=== PATIENT | male | born 1965 | race African-American/Black ===

== ENCOUNTER 2019-07-31 02:16 | Observation (INO) | payer MEDICAID ==
[2019-07-31 02:53] LABS: #Basophils 0.1 thou/uL (0.0-0.2); #Eosinphils 0.7 thou/uL (0.0-0.7); #Monocytes 0.8 thou/uL (0.11-0.59); #Neutrophils 4.3 thou/uL (1.40-6.50); %Basophils 1.1 % (0.0-1.0); %Eosinophils 8.7 % (0.0-10.0); %Lymphocytes 25.6 % (21.0-51.0); %Monocytes 9.9 % (0.0-10.0); %Neutrophils 54.8 % (42.0-75.0); Mean Corpuscular HGB CONC 33.5 g/dL (32.0-36.0); Mean Corpuscular Hemoglobin 33.7 pg (27.0-31.0); Mean Platelet Volume 8.8 fL (7.4-10.4); Platelet Count 202 thou/uL (130-400); RBC Distribution Width 18.7 % (11.5-14.5); Red Blood Cell (RBC) Count 2.98 mill/uL (4.70-6.10); White Blood Cell (WBC) Count 7.8 thou/uL (4.8-10.8)
[2019-07-31 03:07] LABS: ALT (SGPT) Less than 7 U/L (8-55); AST (SGOT) 23 U/L (5-34); Albumin 3.7 g/dL (3.5-5.0); Alkaline Phosphatase 62 U/L (40-110); Anion Gap 18 mmol/L (10-20); BUN (Urea Nitrogen) 32 mg/dL (8.4-25.7); Bilirubin, Total 0.6 mg/dL (0.2-1.2); Calc. Creatinine Clearance 0 mL/min (70-130); Calcium 10.1 mg/dL (7.8-10.44); Carbon Dioxide 23 mmol/L (22-29); Chloride 92 mmol/L (98-107); Estimated GFR-MDRD 11; Globulin 4.6 g/dL (2.4-3.5); Glucose 89 mg/dL (70-105); Potassium 4.6 mmol/L (3.5-5.1); Protein, Total 8.3 g/dL (6.0-8.3); Sodium 128 mmol/L (136-145)
--- NOTE | 2019-07-31 05:16 | HP ---
PRIMARY CARE PHYSICIAN: Dr. Zavala in [place]. CHIEF COMPLAINT: Pulled out dialysis catheter. HISTORY OF PRESENT ILLNESS: The patient is a 53-year-old male with past medical history significant for end-stage renal disease, with dialysis on Monday, Monday, Monday, and hypertension. He presents to the ER after he accidentally removed his dialysis catheter while taking off his shirt. He denies any shortness of breath , pain, excessive bleeding. He states that a surgeon here in [place] was the one who placed the catheter, although he is unable to remember his name. He states that his panel cutter is a physician in [place], although he cannot remember his name either. Today in the ER, they completed lab work and consulted General surgery and Nephrology. PAST MEDICAL HISTORY: End-stage renal disease, on dialysis Monday, Monday, Monday treatments and hypertension. PAST SURGICAL HISTORY: Dialysis catheter placed to his right chest, which has been removed and then the catheter was placed in his left chest. ALLERGIES: NO KNOWN DRUG ALLERGIES. MEDICATIONS: Patient unable to recall his medications. SOCIAL HISTORY: The patient lives at home. He does not work. He is a daily smoker one pack per week to a pack per day. He drinks beer daily. Denies any illicit drug use. FAMILY HISTORY: Patient is unaware of any family history. REVIEW OF SYSTEMS: All other review of system was negative unless noted in the HPI. PHYSICAL EXAMINATION: VITAL SIGNS: Blood pressure 171/103, pulse 84, respiratory rate 20, no pain, O2 saturation 97% on room air. GENERAL: The patient appears nontoxic, in no apparent distress. HEENT: Head atraumatic, normocephalic. PERRLA. Extraocular muscles intact. RESPIRATORY: Normal chest expansion. Clear to auscultation bilaterally. No wheezing, no rales, no rhonchi. CARDIOVASCULAR: Regular rate and rhythm. No murmurs, no gallops, no rubs. ABDOMEN: Bowel sounds normal. No masses. No guarding. Nontender. EXTREMITIES: Normal range of motion. No cyanosis or clubbing. NEUROLOGIC: No focal deficits. Oriented to person, place, and time. SKIN: Warm, dry. Scar from previous HD cath site on the right side. Wound where left- sided HD cath is with no signs of infection. PSYCH: Normal affect, normal behavior. LABORATORY DATA: Sodium 128, chloride 92, BUN 32, creatinine 6.61, GFR 11, white blood cells 7.8, red blood cells 2.98, hemoglobin 10, hematocrit 30. IMPRESSION AND PLAN: 1. End-stage renal disease with dialysis. We will consult Nephrology in the morning and also general surgery to have the catheter placed. We will follow Nephrology 's recommendations for electrolyte replacement with dialysis. Patient states that he has Monday, Monday and Monday dialysis admission. Patient did go Monday for his usual treatment. 2. Hypertension. Blood pressure stable at this time. We will continue to monitor. Administer p.r.n.s. as needed until medications are being reconcile. 3. Deep venous thrombosis prophylaxis with sequential compression devices due to possible surgery later today. Gastrointestinal prophylaxis with famotidine. The patient wishes to be a full code. The patient did not know the name or phone number for someone to use as a surrogate decision maker at this time. Job ID: [id number] MTDD
[2019-07-31 05:27] VITALS: BMI 20.7
[2019-07-31] MEDS ORDERED: hydrALAZINE 20 MG/ML VIAL SLOW IVP PRN ×2 (07:13→11:25)
--- NOTE | 2019-07-31 07:50 | RAD ---
EXAM: Single view of the chest HISTORY: Pulled out hemodialysis catheter. End-stage renal disease. COMPARISON: None FINDINGS: Single view of the chest shows a normal sized cardiomediastinal silhouette. There is no sundeep dence of consolidation, mass, or pleural effusion. There are bilateral rib fractures which may be remote. IMPRESSION: No evidence of acute cardiopulmonary disease
[2019-07-31] MEDS ORDERED: Famotidine 20 MG TAB PO SCH (09:00)
--- NOTE | 2019-07-31 12:48 | PDOC.HOSPP ---
- Subjective Encounter Date: 07/31/19 Encounter Time: 10:15 Subjective: Patient seen and examined. No new complaints. No overnight events - Objective Vital Signs & Weight: Vital Signs (12 hours) Temp Pulse Resp BP BP Pulse Ox 07/31/19 11:13 97.7 F 88 16 167/86 H 100 07/31/19 08:19 83 202/109 H 07/31/19 08:00 97.9 F 83 16 202/109 H 100 07/31/19 07:17 97.9 F 83 16 202/109 H 100 07/31/19 05:00 98.1 F 83 18 182/96 H 99 Weight Weight 161 lb 8 oz Result Diagrams: 07/31/19 02:37 07/31/19 02:37 Hospitalist ROS - Review of Systems ENT: denies: ear pain, ear discharge, nose pain, nose discharge, nose congestion , mouth pain, mouth swelling, throat pain, throat swelling, other Respiratory: denies: cough, dry, shortness of breath, hemoptysis, SOB with excertion, pleuritic pain, sputum, wheezing, other Cardiovascular: denies: chest pain, palpitations, orthopnea, paroxysmal noc. dyspnea, edema, light headedness, other Gastrointestinal: denies: nausea, vomiting, abdominal pain, diarrhea, constipation, melena, hematochezia, other Genitourinary: denies: dysuria, frequency, incontinence, hematuria, retention, other Musculoskeletal: denies: neck pain, shoulder pain, arm pain, back pain, hand pain, leg pain, foot pain, other - Medication Medications: Active Medications Generic Name Dose Route Start Last Admin Trade Name Freq PRN Reason Stop Dose Admin Famotidine 20 mg 07/31/19 09:00 07/31/19 08:22 Pepcid PO Not Given DAILY ANKIT Sodium Chloride 10 ml 07/31/19 09:00 07/31/19 08:22 Flush - Normal Saline IVF 10 ml Q12HR ANKIT Administration - Exam General Appearance: NAD, awake alert Eye: PERRL, anicteric sclera ENT: normocephalic atraumatic, no oropharyngeal lesions Neck: supple, symmetric, no JVD, no thyromegaly Heart: RRR, no murmur, no gallops, no rubs Respiratory: CTAB, no wheezes, no rales, no ronchi Gastrointestinal: soft, non-tender, non-distended, normal bowel sounds Extremities: no cyanosis, no clubbing, no edema Skin: normal turgor, no lesions Neurological: no focal deficits Musculoskeletal: normal tone, normal strength Psychiatric: normal affect, normal behavior Hosp A/P (1) Hypertensive urgency Code(s): I16.0 - HYPERTENSIVE URGENCY Status: Acute (2) ESRD (end stage renal disease) on dialysis Code(s): N18.6 - END STAGE RENAL DISEASE; Z99.2 - DEPENDENCE ON RENAL DIALYSIS Status: Acute (3) Anemia of renal disease Code(s): N18.9 - CHRONIC KIDNEY DISEASE, UNSPECIFIED; D63.1 - ANEMIA IN CHRONIC KIDNEY DISEASE Status: Acute (4) Hyponatremia Code(s): E87.1 - HYPO-OSMOLALITY AND HYPONATREMIA Status: Acute - Plan old records reviewed/req nephrology consulted for HD general surgery consulted for HD catheter placement as it has been pulled out reconciled his home meds will change to procardia xl 60 mg and coreg 12.5 mg po bid hydralazine as needed medication reviewed symptomatic treatment
--- NOTE | 2019-07-31 13:31 | ULT ---
EXAM: Vein mapping for dialysis access HISTORY: End-stage renal disease. TECHNIQUE: Multiplanar grayscale and color Doppler images were obtained in a bilateral upper extremit y venous ultrasound. Spectral analysis of the Doppler waveforms of the vessels were performed. FINDINGS: The bilateral internal jugular veins and subclavian veins are patent without evidence of th rombus. Right brachial artery 8.0 mm Right radial artery 4.1 mm Right ulnar artery 3.3 mm Left brachial artery 6.4 mm Left radial artery 3.7 mm Left ulnar artery 2.7 mm RIGHT CEPHALIC VEIN in millimeters 1.2 -- Shoulder 0.9 -- Upper arm 0.7 -- Mid upper arm 1.7-- Just proximal to the elbow 1.1 -- Just distal to the elbow 0.8 -- Forearm 0.8 -- Wrist RIGHT BASILIC VEIN in millimeters 4.6 -- Shoulder 4.5 -- Upper arm 4.8 -- Mid upper arm 4.8 -- Just proximal to the elbow 1.8 -- Just distal to the elbow 1.4 -- Forearm 1.5 -- Wrist LEFT CEPHALIC VEIN in millimeters 2.9 -- Shoulder 1.7 -- Upper arm 2.1 -- Mid upper arm 3.1 -- Just proximal to the elbow 2.0 -- Just distal to the elbow 1.5 -- Forearm 1.4 -- Wrist LEFT BASILIC VEIN in millimeters 5.0 -- Shoulder 5.1 -- Upper arm 4.8 -- Mid upper arm 4.9 -- Just proximal to the elbow 1.4 -- Just distal to the elbow 1.5 -- Forearm 1.5 -- Wrist IMPRESSION: Vein mapping for dialysis access as above
[2019-07-31] MEDS ORDERED: Cepastat Lozenges 1 LOZ PO PRN (14:08)
[2019-07-31] MEDS ORDERED: HYDROcodone/Acetaminophen 5/325 mg Tablet PO PRN (14:08)
[2019-07-31] MEDS ORDERED: Artificial Tears 18 DROP/0.9 ML EA EYE PRN (14:08)
[2019-07-31] MEDS ORDERED: Ondansetron ODT 4 MG TAB PO PRN (14:08)
[2019-07-31] MEDS ORDERED: Zolpidem Tartrate 5 MG TAB PO PRN (14:08)
[2019-07-31] MEDS ORDERED: Senokot S 8.6-50 MG TAB PO PRN (14:08)
[2019-07-31] MEDS ORDERED: Ondansetron PF 4 MG/2 ML Vial IVP PRN (14:08)
[2019-07-31] MEDS ORDERED: Sodium Chloride 0.65% Nasal 44 ML BOT EA NARE PRN (14:08)
[2019-07-31] MEDS ORDERED: Diabetic Tussin 200 MG/10 ML UDCUP PO PRN (14:08)
[2019-07-31] MEDS: diphenhydrAMINE 25 MG CAP PO PRN ×2 (14:36→20:08)
[2019-07-31] MEDS: NIFEdipine XL 60 MG TAB PO SCH (14:36)
[2019-07-31] MEDS ORDERED: CEFAZOLIN 2 GM in Premix Bag 1 BAG IVPB SCH (17:15)
[2019-07-31] MEDS: Carvedilol 6.25 MG TAB PO SCH (18:51)
[2019-07-31] MEDS: Calcium Carbonate 500 MG ChewTAB PO SCH (18:51)
--- NOTE | 2019-08-01 01:05 | CON ---
DATE OF CONSULTATION: REASON FOR CONSULTATION: Maintenance hemodialysis. HISTORY OF PRESENT ILLNESS: This is a 53-year-old gentleman on hemodialysis Monday, Monday, Monday, presented to the hospital after failed dialysis. The patient denies any nausea, vomiting, or chest pain. The patient sees Dr. Montez. PAST MEDICAL HISTORY: Significant for end-stage renal disease, hypertension, decreased hearing, query learning disability, dialysis catheter placement. ALLERGIES: REVIEWED. MEDICATIONS: Home medications list reviewed. Hospital medication list reviewed. REVIEW OF SYSTEMS: Fifteen-point review of system was performed and negative except for positives noted above. HEENT: Eyes intact, no diplopia. Ears: No hearing loss or earache. Nose: No discharge or bleeding. CHEST: No cough or phlegm. ABDOMEN: No nausea or vomiting. GENITOURINARY: No hematuria. No Romero catheter. MUSCULOSKELETAL: No low back pain. No joint swelling or pain. NEUROLOGICAL: No syncope. No seizures. SKIN: No complaints of rash or itching. PSYCHIATRIC: No depression. CONSTITUTIONAL: No weight loss or loss of appetite. PHYSICAL EXAMINATION: GENERAL: The patient is awake and alert. VITAL SIGNS: Afebrile, pulse 75, breathing at 16, blood pressure 171/103. HEENT: Head normocephalic and atraumatic. Eyes intact, no ulcers. Nose intact, no ulcers. Ears intact, no ulcers. NECK: Supple. No JVD. CHEST: Symmetrical and clear. CARDIOVASCULAR: Shows S1 and S2, no rub, no murmur. GASTROINTESTINAL: Abdomen is soft, bowel sounds positive. EXTREMITIES: Show no edema or ulcers. SKIN: Shows no rash or petechiae. MUSCULOSKELETAL: Shows no joint swelling or stiffness. GENITOURINARY: Shows no Romero or CVA tenderness. NEUROLOGIC: Motor intact. Cranial nerves intact. LABORATORY DATA: Reviewed. ASSESSMENT AND PLAN: 1. Stage 6 chronic kidney disease. Plan, Surgical consult for catheter placement. 2. Hypertension, stable. 3. Anemia, stable. 4. Medication based on GFR appropriate. Job ID: [id number]
[2019-08-01] MEDS: Carvedilol 6.25 MG TAB PO SCH ×2 (05:52→17:37)
[2019-08-01] MEDS ORDERED: Lidocaine 1% w/Epinephrine 1:100K 20 ML VIAL ONE (06:44)
[2019-08-01] MEDS ORDERED: Bupivacaine 0.25% HCL 30 ML VIAL ONE (06:44)
[2019-08-01] MEDS ORDERED: Heparin 5,000 UNITS/ML VIAL ONE (06:44)
[2019-08-01] MEDS ORDERED: Sodium Chloride 0.9% 30 ML ONE (06:44)
[2019-08-01] MEDS ORDERED: Protamine Sulfate 50 MG/5 ML VIAL ONE (06:44)
[2019-08-01] MEDS ORDERED: Heparin 10,000 UNITS/1 ML VIAL ONE (06:44)
[2019-08-01] MEDS ORDERED: Fentanyl 100 MCG/2 ML VIAL ONE (06:46)
[2019-08-01] MEDS ORDERED: Midazolam HCl 2 mg/2 ml Vial ONE (06:47)
--- NOTE | 2019-08-01 06:57 | CON ---
DATE OF CONSULTATION: 07/31/2019 REASON FOR CONSULT: Need for dialysis access. HISTORY OF PRESENT ILLNESS: Mr. Fry is a 53-year-old gentleman with end-stage renal failure, on dialysis for the past couple of months. He is a vague historian. He states that he went to the emergency room initially because of itching and was found to be in renal failure. He had a dialysis catheter placed in the right internal jugular position, but this had to be removed sometime later. He thinks it was due to infection, but states he was not having any fevers or pain related to the catheter. The catheter was replaced at the left IJ position and was functioning well until he took his shirt off last night and the catheter came out with it. He has not had any significant bleeding, just a small amount at the time of the catheter pulling out. He denies any shortness of breath or fevers and was not having any drainage or redness or tenderness at the catheter site at the time that it came out. He is unsure of the cause of his renal failure. He does have hypertension, but did not even know that he had renal failure before he went into the emergency room a few months back. He states that he was told that it might be due to his drinking. PAST MEDICAL HISTORY: Hypertension and alcohol and tobacco abuse, but he denies any known history of cirrhosis. He has end-stage renal failure, on dialysis Monday, Monday, and Monday and did undergo a full round of dialysis on Monday. PAST SURGICAL HISTORY: Dialysis catheters on the right and the left, and ORIF of a broken leg many years ago. ALLERGIES: HE HAS NO KNOWN DRUG ALLERGIES. MEDICATIONS: The patient was unable to recall his outpatient medications, but we contacted his dialysis clinic and according to them, his outpatient medications are; 1. Amlodipine 5 mg p.o. daily. 2. Benadryl 25 mg p.o. q.6 hours p.r.n. itching. 3. Calcium carbonate 800 mg p.o. b.i.d. 4. Vitamin D3 of 400 units p.o. daily. 5. Vitamin B12 and folate tablet daily. 6. Finasteride 5 mg p.o. daily. Inpatient medications include; 1. Carvedilol 12.5 mg p.o. b.i.d. 2. Vitamin D 400 units p.o. daily. 3. Vitamin B12 and folate daily. 4. Pepcid. 5. Finasteride. 6. Nifedipine 60 mg p.o. daily. 7. Protonix 40 mg p.o. daily. 8. Multiple p.r.n.'s. FAMILY HISTORY: None known. He denies any family members with renal failure. SOCIAL HISTORY: The patient smokes up to a pack a day and drinks varying amounts of alcohol on a daily basis. He denies any illicit drugs. REVIEW OF SYSTEMS: He denies any shortness of breath or swelling in his legs, or any history of fluid overload or heart failure. He denies any chest pain, orthopnea, fevers or chills. PHYSICAL EXAMINATION: VITAL SIGNS: The patient is hypertensive with blood pressure 167/86, heart rate 88, respirations 16, and 100% saturated on room air. The patient has been afebrile since his admission. GENERAL: Reveals a healthy-appearing man, in no acute distress. He is not flushed or toxic in appearance. He is not jaundiced or icteric, although his eyes do have a slight yellowish tint to the sclerae. HEENT: Unremarkable. NECK: Supple without lymphadenopathy or thyroid nodules. HEART: Regular in its rate and rhythm. I do not appreciate any murmurs, rubs, or gallops. LUNGS: Clear to auscultation bilaterally with good air entry. ABDOMEN: Soft, nontender, nondistended without palpable hernias or masses. EXTREMITIES: Warm and well perfused without edema. He has normal bilateral filling on Ab's testing in both arms. He has bilateral palpable forearm and antecubital veins as well as a good left upper arm cephalic vein. He had a left which has been removed in his hand. NEUROLOGIC: No focal deficits. PSYCHIATRIC: Alert, oriented, and appropriate, but a very vague historian and unable to provide much medical details regarding his past and recent history. LABORATORY DATA: White count is normal at 7.8, hematocrit 30, platelets 202. Sodium and chloride are slightly low at 128 and 92, BUN and creatinine are elevated at 32 and 6.61. Potassium and bicarb are normal. Bilirubin, AST and ALT are not elevated. Chest x-ray looks clear. He has some old rib fractures, which he states he sustained at the same time of his broken leg. Vein mapping shows large basilic veins bilaterally with [id number] lower arm cephalic vein, slightly better on the left than the right, and moderate size cephalic veins in the upper arm, although variable size on the right. ASSESSMENT: End-stage renal failure, on dialysis for several months without improvement in his renal function. Gate Supervisor feels that long-term dialysis will be necessary. They do not expect his renal function will recover. He has been recommended to undergo a fistula placement by his outpatient rv repairer, but has not yet scheduled that. He will require replacement of a tunneled dialysis catheter for ongoing dialysis as well as a fistula for long-term dialysis access. As he is right-handed, I will plan to place a fistula on the left hand. We discussed the procedures of both tunneled dialysis catheter placement and left arm AV fistula. We discussed inherent risks of these procedure. These include, but are not limited to, bleeding, infection, risk of anesthesia, damage to nearby structures, failure of the fistula to develop, arterial steal, pneumothorax, hemothorax, and DVT. He understands and accepts these risks and wishes to proceed. He is on the schedule for tomorrow morning at 7:30. Antibiotics have been ordered on-call to OR. Job ID: [id number]
[2019-08-01] MEDS ORDERED: Folic Acid/Vit B Comp W-C PO SCH (09:00)
[2019-08-01] MEDS ORDERED: Finasteride 5 MG TAB PO SCH (09:00)
[2019-08-01] MEDS ORDERED: Cyanocobalamin (Vitamin B-12) 1,000 MCG TAB PO SCH (09:00)
[2019-08-01] MEDS ORDERED: Cholecalciferol (Vitamin D3) 400 UNITS TAB PO SCH (09:00)
[2019-08-01] MEDS ORDERED: Folic Acid 1 MG TAB PO SCH (09:00)
[2019-08-01] MEDS ORDERED: Promethazine HCl 25 MG/ML VIAL IM PRN (09:20)
[2019-08-01] MEDS ORDERED: Promethazine HCl 25 MG/ML VIAL SLOW IVP PRN (09:20)
[2019-08-01] MEDS ORDERED: Ondansetron HCl/PF 4 MG/2 ML Vial IVP PRN (09:20)
--- NOTE | 2019-08-01 09:35 | RAD ---
PORTABLE CHEST: Date: 08/01/2019 PROVIDED CLINICAL HISTORY: Status post dialysis catheter placement. FINDINGS: Comparison with 07/31/2019. Interval placement of right IJ dialysis catheter with tips overlying expected location of SVC. No foc al consolidation, pleural fluid, or pneumothorax apparent. IMPRESSION: Status post dialysis catheter placement without evidence for complication. POS: ANSHU
[2019-08-01] MEDS: NIFEdipine XL 60 MG TAB PO SCH (10:12)
[2019-08-01] MEDS: Calcium Carbonate 500 MG ChewTAB PO SCH ×2 (10:20→17:37)
--- NOTE | 2019-08-01 10:40 | PDOC.HOSPP ---
- Subjective Encounter Date: 08/01/19 Encounter Time: 10:10 Subjective: Patient seen and examined. No new complaints. No overnight events - Objective Vital Signs & Weight: Vital Signs (12 hours) Temp Pulse Resp BP BP Pulse Ox 08/01/19 10:12 75 124/74 08/01/19 09:50 75 18 124/74 99 08/01/19 05:52 155/81 H 08/01/19 04:00 98.7 F 94 16 155/81 H 100 07/31/19 23:51 98.4 F 88 18 162/84 H 100 Weight Admit Weight 161 lb Weight 161 lb 8 oz I&O: 07/31/19 08/01/19 08/02/19 06:59 06:59 06:59 Intake Total 1840 Balance 1840 Result Diagrams: 07/31/19 02:37 07/31/19 02:37 Hospitalist ROS - Review of Systems ENT: denies: ear pain, ear discharge, nose pain, nose discharge, nose congestion , mouth pain, mouth swelling, throat pain, throat swelling, other Respiratory: denies: cough, dry, shortness of breath, hemoptysis, SOB with excertion, pleuritic pain, sputum, wheezing, other Cardiovascular: denies: chest pain, palpitations, orthopnea, paroxysmal noc. dyspnea, edema, light headedness, other Gastrointestinal: denies: nausea, vomiting, abdominal pain, diarrhea, constipation, melena, hematochezia, other Genitourinary: denies: dysuria, frequency, incontinence, hematuria, retention, other Musculoskeletal: denies: neck pain, shoulder pain, arm pain, back pain, hand pain, leg pain, foot pain, other - Medication Medications: Active Medications Generic Name Dose Route Start Last Admin Trade Name Freq PRN Reason Stop Dose Admin Calcium Carbonate 1,000 mg 07/31/19 16:30 08/01/19 10:20 Tums PO Not Given BID-AC ANKIT Carvedilol 12.5 mg 07/31/19 17:00 08/01/19 05:52 Coreg PO 12.5 mg BID-WM ANKIT Administration Cyanocobalamin 1,000 mcg 08/01/19 09:00 08/01/19 10:13 Vitamin B-12 PO 1,000 mcg DAILY ANKIT Administration Diphenhydramine HCl 25 mg 07/31/19 12:51 07/31/19 20:08 Benadryl PO 25 mg Q6H PRN Administration Itching & Insomnia Finasteride 5 mg 08/01/19 09:00 08/01/19 10:10 Proscar PO 5 mg DAILY ANKIT Administration Folic Acid 1 mg 08/01/19 09:00 08/01/19 10:11 Folvite PO 1 mg DAILY ANKIT Administration Nifedipine 60 mg 07/31/19 09:00 08/01/19 10:12 Procardia Xl PO 60 mg DAILY ANKIT Administration Pantoprazole Sodium 40 mg 08/01/19 09:00 08/01/19 10:11 Protonix PO 40 mg DAILY ANKIT Administration Sodium Chloride 10 ml 07/31/19 09:00 08/01/19 10:13 Flush - Normal Saline IVF 10 ml Q12HR ANKIT Administration Vitamin B Complex/Vit C/Folic Acid 1 tab 08/01/19 09:00 08/01/19 10:13 Nephro-Mita Tablet PO 1 tab DAILY ANKIT Administration - Exam General Appearance: NAD, awake alert Eye: PERRL, anicteric sclera ENT: normocephalic atraumatic, no oropharyngeal lesions Neck: supple, symmetric, no JVD Heart: RRR, no murmur, no gallops, no rubs Respiratory: CTAB, no wheezes, no rales Gastrointestinal: soft, non-tender, non-distended, normal bowel sounds Extremities: no cyanosis, no clubbing Skin: normal turgor, no lesions Neurological: no focal deficits Musculoskeletal: normal tone, normal strength Psychiatric: normal affect, normal behavior Hosp A/P (1) Hypertensive urgency Code(s): I16.0 - HYPERTENSIVE URGENCY Status: Acute (2) ESRD (end stage renal disease) on dialysis Code(s): N18.6 - END STAGE RENAL DISEASE; Z99.2 - DEPENDENCE ON RENAL DIALYSIS Status: Acute (3) Anemia of renal disease Code(s): N18.9 - CHRONIC KIDNEY DISEASE, UNSPECIFIED; D63.1 - ANEMIA IN CHRONIC KIDNEY DISEASE Status: Acute (4) Hyponatremia Code(s): E87.1 - HYPO-OSMOLALITY AND HYPONATREMIA Status: Acute - Plan old records reviewed/req nephrology consulted for HD general surgery consulted for HD catheter placement as it has been pulled out reconciled his home meds will change to procardia xl 60 mg and coreg 12.5 mg po bid hydralazine as needed medication reviewed symptomatic treatment 08/01/19 s/p tunneled HD catheter placement HD today will dc later today continue outpt HD
[2019-08-01 11:30] LABS: #Basophils 0.1 thou/uL (0.0-0.2); #Eosinphils 0.4 thou/uL (0.0-0.7); #Lymphocytes 1.4 thou/uL (1.20-3.40); #Monocytes 0.3 thou/uL (0.11-0.59); #Neutrophils 2.2 thou/uL (1.40-6.50); %Basophils 1.2 % (0.0-1.0); %Eosinophils 9.1 % (0.0-10.0); %Lymphocytes 31.6 % (21.0-51.0); %Monocytes 7.4 % (0.0-10.0); %Neutrophils 50.8 % (42.0-75.0); Hemoglobin 10.5 g/dL (14.0-18.0); Mean Corpuscular HGB CONC 32.3 g/dL (32.0-36.0); Mean Corpuscular Hemoglobin 33.4 pg (27.0-31.0); Mean Platelet Volume 7.3 fL (7.4-10.4); Platelet Count 220 thou/uL (130-400); Red Blood Cell (RBC) Count 3.14 mill/uL (4.70-6.10); White Blood Cell (WBC) Count 4.4 thou/uL (4.8-10.8)
[2019-08-01 11:44] LABS: Anion Gap 17 mmol/L (10-20); BUN (Urea Nitrogen) 39 mg/dL (8.4-25.7); Calc. Creatinine Clearance 11 mL/min (70-130); Calcium 9.1 mg/dL (7.8-10.44); Carbon Dioxide 20 mmol/L (22-29); Chloride 95 mmol/L (98-107); Estimated GFR-MDRD 9; Glucose 84 mg/dL (70-105); Potassium 4.2 mmol/L (3.5-5.1); Sodium 128 mmol/L (136-145)
--- NOTE | 2019-08-01 11:48 | DIS ---
DATE OF ADMISSION: 07/31/2019 DATE OF DISCHARGE: 08/01/2019 PRIMARY CARE PHYSICIAN: [facility]. DISCHARGE DISPOSITION: Home. PRIMARY DISCHARGE DIAGNOSES: 1. Status post tunneled hemodialysis catheter placement. 2. Hypertensive urgency. 3. Hyponatremia. SECONDARY DISCHARGE DIAGNOSES: 1. Hypertension. 2. End stage renal disease, on hemodialysis. 3. Anemia of renal disease. PRIMARY PROCEDURE/OPERATION: Tunneled hemodialysis catheter placement by Dr. Marti. RADIOLOGICAL INVESTIGATION: Chest x-ray normal. Marking ultrasound, repeat chest x-ray after procedure unremarkable. SIGNIFICANT LABORATORY DATA: Hemoglobin 10.0, platelet 202, WBC 7.8, sodium 128, creatinine 6.61. LFT normal. DISCHARGE MEDICATION: 1. Benadryl 25 mg p.o. q.6 hourly p.r.n. 2. Calcium carbonate 800 mg p.o. b.i.d. 3. Vitamin D3 400 international units p.o. daily. 4. Nephro-Mita one tablet p.o. daily. 5. Proscar 5 mg p.o. daily. 6. Coreg 12.5 mg p.o. b.i.d. 7. Procardia XL 60 mg p.o. daily. CONTRAINDICATION: None. CODE STATUS: Full code. INPATIENT CNC MACHINE SETTER: Dr. Vegas, Nephrology was consulted while in hospital. Dr. Marti was consulted for tunneled hemodialysis catheter placement. TEST RESULTS PENDING ON DISCHARGE: None. ALLERGIES: NO KNOWN DRUG ALLERGIES. DISCHARGE PLAN: Post hospital the patient will follow up with his Nephrology and patient will continue his outpatient hemodialysis schedule, the patient will follow up with primary care physician in 1 week. The patient will follow up with Dr. Marti for AV fistula evaluation. HOSPITAL COURSE: A 53-year-old male with above-mentioned medical problem, who was admitted by nurse practitioner, Cait. Please see her H and P for further details. The patient was having ESRD, but he was getting dialysis through temporary dialysis. Dialysis catheter accidentally came out and he was not able to get dialysis. The patient was sent to hospital for evaluation. The patient was admitted to medical floor under observation status. The patient is getting a hemodialysis Monday, Monday, Monday prior to admission. While in hospital, we consulted Nephrology. We also consulted General surgery for a tunneled hemodialysis catheter placement. The patient had a tunneled hemodialysis catheter and now he is going to get hemodialysis. Once he get hemodialysis, then patient is overall medically stable for discharge. The patient is seen and examined at bedside today. Please see my progress note for more detail. While in hospital, we noted that his blood pressure was very high and that is why we added Procardia XL instead of amlodipine and Coreg 12.5 mg twice daily added. All the medication prescription will be sent to his pharmacy. Job ID: [id number]
--- NOTE | 2019-08-01 13:16 | PRG ---
DATE OF SERVICE: 08/01/2019 SUBJECTIVE: A 53-year-old gentleman, being seen for end-stage kidney disease. The patient denied nausea, vomiting, or chest pain. OBJECTIVE: General: The patient is awake and alert. Vital Signs: Afebrile, pulse 75, breathing 16, and blood pressure HEENT: Head normocephalic and atraumatic. Eyes intact, no ulcers. Nose intact, no ulcers. Ears intact, no ulcers. Neck: Supple. No JVD. Chest: Symmetrical and clear. Cardiovascular: Shows S1 and S2, no rub, no murmur. Gastrointestinal: Abdomen is soft, bowel sounds positive. Extremities: Show no edema or ulcers. Skin: Shows no rash or petechiae. Musculoskeletal: Shows no joint swelling or stiffness. Genitourinary: Shows no Romero or CVA tenderness. Neurologic: Motor intact. Cranial nerves intact. LABORATORY DATA: 1. End-stage kidney disease. Plan dialysis. 2. Hypertension, plan ultrafiltration. 3. Anemia, stable. 4. Medication based on GFR appropriate. Job ID: [id number]
[2019-08-01] MEDS ORDERED: EPHEDRINE 25 MG/5 ML SYRINGE ONE (15:03)
[2019-08-01] MEDS ORDERED: Lidocaine 1% PF 5 ML VIAL ONE (15:03)
[2019-08-01] MEDS ORDERED: PROPOFOL 200 MG/20 ML VIAL ONE (15:03)
[2019-08-01] MEDS ORDERED: Bupivacaine HCl 0.5%/Epinephrine 1:200,000/PF 30 ml Vial ONE (15:03)
[2019-08-01 16:13] VITALS: BP 120/74; TEMP 97.5
--- NOTE | 2019-08-03 11:02 | EKG ---
Test Reason : Blood Pressure : / mmHG Vent. Rate : 083 BPM Atrial Rate : 083 BPM P-R Int : 144 ms QRS Dur : 096 ms QT Int : 446 ms P-R-T Axes : 080 031 071 degrees QTc Int : 524 ms Normal sinus rhythm Prolonged QT Abnormal ECG Confirmed by HAYDE RODRIGUEZ DO ([id number]), graphics editor CATHERINE BUSTAMANTE ([id number]) on 08/03/2019 11:02:04 AM Referred By: Confirmed By:HAYDE RODRIGUEZ DO
--- NOTE | 2019-08-09 13:26 | PDOC.OP ---
Operative Note - Operative Note Operative Note: DATE OF PROCEDURE: 08/01/2019 PROCEDURE: Placement of tunneled hemodialysis catheter with ultrasound and fluoroscopic guidance, and left Fox AV fistula. SURGEON: Nathan Marti M.D. PREOPERATIVE DIAGNOSIS: End-stage renal failure. POSTOPERATIVE DIAGNOSIS: End-stage renal failure. HISTORY: Patient with renal failure. He has been undergoing dialysis for about 2 months with a left internal jugular tunneled hemodialysis catheter, but this fell out yesterday as he was changing. A tunneled hemodialysis catheter for ongoing dialysis has been requested by the patients transaction manager, as well as an AV fistula for long-term dialysis access. PROCEDURE: After informed consent was obtained and appropriate preoperative antibiotics were administered, the patient was taken to the Operating Room, placed in the supine position and monitored anesthesia care was administered. The neck and chest were prepped and draped in a standard sterile fashion and the patient placed in Trendelenburg position. A sterile ultrasound probe was used to identify the patent compressible right IJ vein which was accessed under direct ultrasound guidance. A wire was threaded through the needle and confirmed by ultrasound to be within the patent compressible vessel with the tip in the vena cava by fluoroscopy. Local anesthesia was infused to the skin and subcutaneous tissues of the right neck and chest. An infraclavicular incision was made and a catheter tunneled from the infraclavicular to the right IJ access site. The right IJ was sequentially dilated over the wire following which a dilator and sheath were placed over the wire and the dilator and wire removed leaving the sheath in place. The catheter was tunneled through the sheath which was then split and removed leaving the catheter in place. This was confirmed by fluoroscopy to be in good position in the superior vena cava with no kinking of the course of the catheter. Both ports easily aspirated dark venous nonpulsatile blood and easily flushed without resistance. Heparin was instilled to the quantity specified on the hub, and the hub was secured to the skin with 3-0 nylon sutures. The skin incision at the neck was closed in two layers with 4-0 Monocryl suture and Dermabond dressings were placed. The skin at the exit site was snugged up around the catheter with 4-0 Monocryl suture and Dermabond was placed there as well. Once the Dermabond was dry, a Biopatch and Tegaderm dressing was placed at the exit site. Attention was then turned to the left AV fistula. A preoperative block had been placed by anesthesia. Adequacy of this block was confirmed. The patient's arm was prepped and draped in standard sterile fashion. The palpable cephalic vein and radial artery were marked on the skin. An incision was made between these 2 structures and dissection carried down to the cephalic vein. This was felt to be of adequate caliber and quality to support an AV fistula. The vein was interrogated with cardiac dilators and easily accepted up to a 4 mm dilator. The vein was flushed with heparinized saline and clamped. The radial artery was identified and dissected free and was felt to be of adequate caliber and quality to support a fistula. This was dissected free. Heparin was administered systemically and allowed to circulate for 3 minutes. After the heparin had circulated for 3 minutes, the radial artery was clamped proximally and distally. An anterior arteriotomy was created with an 11 blade and extended with Skelton scissors. The vein was spatulated and an end-to-side anastomosis was created with excellent technical result. Prior to tying down the anastomosis, the arterial inflow was released flushing the anastomosis. The anastomosis was then secured and hemostasis was verified. Flow was established first through the fistula following which flow was restored through the artery. The patient had a palpable thrill in the cephalic vein as well as a good Doppler signal to the level of the antecubital fossa. The wound was irrigated and examined for hemostasis was again confirmed to be excellent. The subcutaneous tissues were reapproximated with a running 3- 0 Monocryl sutures and the skin was closed with running 4-0 subcuticular Monocryl suture. Dermabond dressings were placed. Prior to leaving the operating room the fistula was again examined by Doppler and a good bruit confirmed. The patient was then taken to recovery in good condition. Estimated blood loss was minimal. There were no complications. There were no specimens.
== END 2019-08-01 19:09 | disposition left against medical advice (07) ==
LOC: ERS 02:16 → INTOOBSV 03:31 → T4-B 03:31
PROVIDERS: ADMIT Internal Medicine; ATTEND Internal Medicine
PROC: 031C0ZF Bypass Left Radial Artery to Lower Arm Vein, Open Approach (ICD-10-PCS; principal; 2019-08-01)
PROC: 02HV33Z Insertion of Infusion Device into Superior Vena Cava, Percutaneous Approach (ICD-10-PCS; 2019-08-01)
PROC: B518ZZA Fluoroscopy of Superior Vena Cava, Guidance (ICD-10-PCS; 2019-08-01)
DX: I16.0 Hypertensive urgency (principal); I12.0 Hypertensive chronic kidney disease with stage 5 chronic kidney disease or end stage renal disease; N18.6 End stage renal disease; D63.1 Anemia in chronic kidney disease; E87.1 Hypo-osmolality and hyponatremia; T82.42XA Displacement of vascular dialysis catheter, initial encounter; F17.210 Nicotine dependence, cigarettes, uncomplicated; F10.10 Alcohol abuse, uncomplicated; Z79.899 Other long term (current) drug therapy; Z99.2 Dependence on renal dialysis
CPT/HCPCS: 36415; 71045; 80048; 80053; 84100; 85025; 93005; 93970; 96374; C1752; G0365; G0378; J0360; J0670; J0690; J1644; J2001; J2250; J2704; J2720; J3010; Q0163; S0020